=== PATIENT | male | born 1990 | race African-American/Black ===

== ENCOUNTER 2018-01-05 06:25 | Emergency (ER) | payer MEDICAID, OTHER ==
[~2018-01-05] VITALS: Ht 188 cm; Wt 118.0 kg
[~2018-01-05 06:25] MED LIST: KEPP500 PO; LEVE500T19 PO; PHEN100C4 PO; PHEN300C6 PO
[2018-01-05] MEDS ORDERED: LORAZEPAM 2MG/ML CPJ IV STA (08:01)
[2018-01-05] MEDS ORDERED: SODIUM CHLORIDE 0.9% 1,000 ML IV ONE ×2 (08:01→09:44)
[2018-01-05] MEDS ORDERED: LEVETIRACETAM 500MG TABLET PO ONE (08:15)
[2018-01-05 09:11] LABS: BASOPHILS % 0.3 % (0.0-2.0); HEMATOCRIT. 42.5 % (42.0-52.0); HEMOGLOBIN. 14.1 g/dL (14.0-18.0); MEAN CORPUSCULAR HEMOGLOBIN 27.6 pg (28.0-32.0); MEAN CORPUSCULAR VOLUME 83.5 fL (80.0-94.0); MEAN PLATELET VOLUME 7.3 fl (7.4-10.4); MONOCYTES % 7.2 % (2.0-8.0); NEUTROPHILS % 76.5 % (40.0-76.0); PLATELET 311 x1000/uL (130-400); RED BLOOD CELL COUNT 5.09 mill/uL (4.7-6.1); RED CELL DISTRIBUTION WIDTH 14.1 % (11.6-14.6)
[2018-01-05 09:14] LABS: CHLORIDE 107 mEq/L (98-107)
[2018-01-05 09:17] LABS: ETHANOL BLOOD < 10 mg/dL
[2018-01-05 09:22] LABS: CREATINE KINASE 448 IU/L (39-308)
[2018-01-05] MEDS ORDERED: LORAZEPAM 2MG/ML CPJ IV ONE (10:30)
[2018-01-05 11:49] LABS: CLARITY URINE CLEAR (CLEAR); COLOR URINE YELLOW (YELLOW); KETONES URINE 2+ (NEGATIVE); LEUKOCYTE ESTERASE URINE NEGATIVE (NEGATIVE); NITRITE URINE NEGATIVE (NEGATIVE); OCCULT BLOOD URINE 1+ (NEGATIVE); PROTEIN URINE 3+ (NEGATIVE); SPECIFIC GRAVITY URINE 1.033 (1.005-1.030)
[2018-01-05 12:20] LABS: CANNABINOID URINE SCREEN PRESUMTIVE POSITIVE (NEGATIVE); PHENCYCLIDINE URINE SCREEN NEGATIVE (NEGATIVE)
[2018-01-05 12:22] LABS: *BARBITURATES SCREEN URINE NEGATIVE (NEGATIVE); *COCAINE SCREEN URINE NEGATIVE (NEGATIVE)
[2018-01-05 12:23] LABS: METHADONE URINE SCREEN NEGATIVE (NEGATIVE)
[2018-01-05 12:25] LABS: *AMPHETAMINES SCREEN URINE PRESUMTIVE POSITIVE (NEGATIVE); *BENZODIAZEPINES SCREEN URINE NEGATIVE (NEGATIVE)
[2018-01-05 12:31] LABS: OPIATES URINE SCREEN NEGATIVE (NEGATIVE)
[2018-01-05 14:20] VITALS: BP 161/90
== END 2018-01-05 15:41 | disposition home or self-care (01) ==
LOC: ER 06:25
DX: F15.10 Other stimulant abuse, uncomplicated (principal); F23 Brief psychotic disorder; G40.909 Epilepsy, unspecified, not intractable, without status epilepticus; F12.10 Cannabis abuse, uncomplicated; F16.10 Hallucinogen abuse, uncomplicated; J45.909 Unspecified asthma, uncomplicated; Z87.891 Personal history of nicotine dependence; Z88.6 Allergy status to analgesic agent; Z87.828 Personal history of other (healed) physical injury and trauma
CPT/HCPCS: 36415; 80053; 80305; 81003; 82550; 83605; 85025; 96374; 96376; 99285; G0482; J2060; J7030; P9612

== ENCOUNTER 2018-01-09 00:33 | Emergency (ER) | payer MEDICAID ==
[~2018-01-09] VITALS: Ht 185.4 cm; Wt 112.0 kg
[2018-01-09] MEDS ORDERED: LORAZEPAM 0.5MG TABLET PO ONE (01:15)
[2018-01-09 03:00] VITALS: BP 151/82
== END 2018-01-09 03:00 | disposition home or self-care (01) ==
LOC: ER 00:33
DX: F41.9 Anxiety disorder, unspecified (principal); R56.9 Unspecified convulsions; J45.909 Unspecified asthma, uncomplicated; I10 Essential (primary) hypertension; F12.10 Cannabis abuse, uncomplicated; F17.200 Nicotine dependence, unspecified, uncomplicated; Z88.6 Allergy status to analgesic agent
CPT/HCPCS: 99282; Z7610; 99284

== ENCOUNTER 2018-07-25 16:40 | Inpatient (IN) | payer MEDICAID ==
[~2018-07-25] VITALS: Ht 175.3 cm; Wt 79.4 kg
[2018-07-25] MEDS ORDERED: LEVETIRACETAM 500MG PREMIX 100 ML IV ONE (17:00)
[2018-07-25 17:40] LABS: BASOPHILS % 0.4 % (0.0-2.0); EOSINOPHILS % 1.2 % (0.0-5.0); HEMATOCRIT. 42.4 % (42.0-52.0); HEMOGLOBIN. 13.5 g/dL (14.0-18.0); MEAN CORPUSCULAR HEMOGLOBIN 27.2 pg (28.0-32.0); MEAN CORPUSCULAR VOLUME 85.3 fL (80.0-94.0); MEAN PLATELET VOLUME 6.8 fl (7.4-10.4); MONOCYTES % 10.8 % (2.0-8.0); NEUTROPHILS % 61.6 % (40.0-76.0); PLATELET 462 x1000/uL (130-400); RED BLOOD CELL COUNT 4.97 mill/uL (4.7-6.1); RED CELL DISTRIBUTION WIDTH 14.8 % (11.6-14.6)
[2018-07-25 17:46] LABS: CHLORIDE 104 mEq/L (98-107)
[2018-07-25 17:53] LABS: ETHANOL BLOOD < 10 mg/dL
[2018-07-25 17:58] LABS: PARTIAL THROMBOPLASTIN TIME 32.5 sec (23.4-31.0); PROTHROMBIN TIME 10.4 sec (9.1-11.1)
[2018-07-25 18:04] LABS: CARBAMAZEPINE < 0.5 ug/mL (4-12); PHENOBARBITAL < 2.1 ug/mL (15.0-40.0)
[2018-07-25] MEDS ORDERED: ACETAMINOPHEN 650MG/20.3ML UDC GT PRN (23:30)
[2018-07-25] MEDS ORDERED: CLONIDINE 0.1MG TABLET PO PRN (23:30)
[2018-07-25] MEDS ORDERED: ACETAMINOPHEN 650MG SUPP PR PRN (23:30)
[2018-07-25] MEDS ORDERED: IPRATROPIUM/ALBUTEROL 0.5-3(2.5)MG/3ML NEB INH PRN (23:30)
[2018-07-25] MEDS ORDERED: DOCUSATE SODIUM 100MG CAPSULE PO PRN (23:30)
[2018-07-25] MEDS ORDERED: DIPHENHYDRAMINE 50MG/ML VIAL IV PRN (23:30)
[2018-07-25] MEDS ORDERED: HYDROCODONE/ACETAMINOPHEN 5/325MG TABLET PO PRN (23:30)
[2018-07-25] MEDS ORDERED: MAGNESIUM/ALUMINUM HYDROXIDE/SIMETHICONE 30ML UDC PO PRN (23:30)
[2018-07-25] MEDS ORDERED: ACETAMINOPHEN 325MG TABLET PO PRN (23:30)
[2018-07-25] MEDS ORDERED: NA PHOS,M-B/NA PHOS,DI-BA ENEMA 118ML PR PRN (23:30)
[2018-07-25] MEDS ORDERED: LORAZEPAM 2MG/ML CPJ IV PRN (23:30)
[2018-07-26 06:05] LABS: CHLORIDE 105 mEq/L (98-107)
[2018-07-26 06:09] LABS: BASOPHILS % 0.5 % (0.0-2.0); EOSINOPHILS % 0.8 % (0.0-5.0); HEMATOCRIT. 41.5 % (42.0-52.0); HEMOGLOBIN. 13.3 g/dL (14.0-18.0); LYMPHOCYTES % 15.4 % (20.0-50.0); MEAN CORPUSCULAR HEMOGLOBIN 27.2 pg (28.0-32.0); MEAN CORPUSCULAR VOLUME 85.1 fL (80.0-94.0); MEAN PLATELET VOLUME 7.3 fl (7.4-10.4); MONOCYTES % 8.1 % (2.0-8.0); NEUTROPHILS % 75.2 % (40.0-76.0); PLATELET 409 x1000/uL (130-400); RED BLOOD CELL COUNT 4.88 mill/uL (4.7-6.1); RED CELL DISTRIBUTION WIDTH 14.8 % (11.6-14.6)
[2018-07-26 06:13] LABS: LDL CHOLESTEROL 56 mg/dL (5-100)
[2018-07-26 06:15] LABS: HDL CHOLESTEROL 56 mg/dL (40-59)
[2018-07-26 08:53] VITALS: BP 147/103
[2018-07-26 09:00] VITALS: BP 147/90
[2018-07-26] MEDS ORDERED: LEVETIRACETAM 500MG/5ML CUP PO SCH (09:00)
[2018-07-26 12:00] VITALS: BP 138/81
[2018-07-26 16:00] VITALS: BP 123/66
[2018-07-26] MEDS ORDERED: LEVE1000 MT (17:53)
[2018-07-26] MEDS ORDERED: AZIT500T2 MT (17:53)
[2018-07-26 18:00] VITALS: BP 123/66
[2018-07-26] MEDS: AZITHROMYCIN 500 MG TABLET PO SCH (19:59)
[2018-07-26 20:00] VITALS: BP 134/89
[2018-07-26] MEDS: LEVETIRACETAM 500MG TABLET PO SCH (20:52)
[2018-07-27] VITALS: BP 126/52
[2018-07-27 01:59] LABS: *AMPHETAMINES SCREEN URINE PRESUMTIVE POSITIVE (NEGATIVE); *BARBITURATES SCREEN URINE NEGATIVE (NEGATIVE); *BENZODIAZEPINES SCREEN URINE NEGATIVE (NEGATIVE); *COCAINE SCREEN URINE NEGATIVE (NEGATIVE); CANNABINOID URINE SCREEN NEGATIVE (NEGATIVE)
[2018-07-27 02:00] LABS: METHADONE URINE SCREEN NEGATIVE (NEGATIVE); OPIATES URINE SCREEN NEGATIVE (NEGATIVE); PHENCYCLIDINE URINE SCREEN NEGATIVE (NEGATIVE)
[2018-07-27 04:00] VITALS: BP 129/86
[2018-07-27 08:30] VITALS: BP 145/90
[2018-07-27] MEDS: LEVETIRACETAM 500MG TABLET PO SCH (09:36)
[2018-07-27] MEDS: AZITHROMYCIN 500 MG TABLET PO SCH (09:36)
[2018-07-27 12:00] VITALS: BP 142/94
[2018-07-27 15:13] VITALS: BP 142/94
== END 2018-07-27 16:00 | disposition home or self-care (01) | DRG 53 ==
LOC: ER 16:40 → 7WST 19:58 → ENRESERV 07-26 07:45
PROVIDERS: ADMIT Family Medicine; ATTEND Family Medicine
DX: G40.909 Epilepsy, unspecified, not intractable, without status epilepticus (principal); G93.41 Metabolic encephalopathy; E66.9 Obesity, unspecified; J06.9 Acute upper respiratory infection, unspecified; F12.90 Cannabis use, unspecified, uncomplicated; I10 Essential (primary) hypertension; J45.909 Unspecified asthma, uncomplicated; Z82.49 Family history of ischemic heart disease and other diseases of the circulatory system; Z88.8 Allergy status to other drugs, medicaments and biological substances; Z79.899 Other long term (current) drug therapy; Z68.25 Body mass index [BMI] 25.0-25.9, adult
CPT/HCPCS: 36415; 71045; 80061; 80156; 80165; 80184; 80185; 80305; 83880; 84484; 93005; 96365; 96375; 99285; C1893; J1953

== ENCOUNTER 2018-08-04 12:27 | Emergency (ER) | payer MEDICAID ==
[~2018-08-04] VITALS: Ht 177.8 cm; Wt 90.0 kg
[~2018-08-04 12:27] MED LIST changes: +AZIT500T2 MT; -KEPP500 PO; +LEVE1000 MT; -LEVE500T19 PO; -PHEN100C4 PO; -PHEN300C6 PO
[2018-08-04] MEDS ORDERED: SODIUM CHLORIDE 0.9% 1,000 ML IV ONE (12:51)
[2018-08-04] MEDS ORDERED: LEVETIRACETAM 1000MG/100ML 100 ML IV ONE (13:00)
[2018-08-04] MEDS ORDERED: DEXTROSE 50% WATER 50ML SYRINGE IV ONE (13:30)
[2018-08-04] MEDS ORDERED: GLUCAGON,HUMAN RECOMBINANT 1MG/VIAL IM ONE (13:30)
[2018-08-04] MEDS ORDERED: LEVETIRACETAM 500MG TABLET PO ONE (14:00)
[2018-08-04 14:40] VITALS: BP 139/85
== END 2018-08-04 15:24 | disposition left against medical advice (07) ==
LOC: ER 13:20
DX: G92 Toxic encephalopathy (principal); E16.2 Hypoglycemia, unspecified; R56.9 Unspecified convulsions; J45.909 Unspecified asthma, uncomplicated; I10 Essential (primary) hypertension; F12.10 Cannabis abuse, uncomplicated; F14.10 Cocaine abuse, uncomplicated; Z88.6 Allergy status to analgesic agent; Z79.899 Other long term (current) drug therapy
CPT/HCPCS: 82962; 96372; 99283; J1610; J7030

== ENCOUNTER 2018-10-05 11:49 | Emergency (ER) | payer MEDICAID ==
[~2018-10-05] VITALS: Ht 177.8 cm; Wt 85.0 kg
[2018-10-05] MEDS ORDERED: SODIUM CHLORIDE 0.9% 1,000 ML IV ONE (12:10)
[2018-10-05] MEDS ORDERED: LEVETIRACETAM 1000MG/100ML 100 ML IV ONE (12:15)
[2018-10-05 12:57] LABS: BASOPHILS % 0.2 % (0.0-2.0); EOSINOPHILS % 0.4 % (0.0-5.0); HEMATOCRIT. 39.6 % (42.0-52.0); HEMOGLOBIN. 13.2 g/dL (14.0-18.0); LYMPHOCYTES % 14.9 % (20.0-50.0); MEAN CORPUSCULAR HEMOGLOBIN 27.7 pg (28.0-32.0); MEAN PLATELET VOLUME 6.9 fl (7.4-10.4); MONOCYTES % 10.8 % (2.0-8.0); NEUTROPHILS % 73.7 % (40.0-76.0); PLATELET 357 x1000/uL (130-400); RED BLOOD CELL COUNT 4.78 mill/uL (4.7-6.1); RED CELL DISTRIBUTION WIDTH 14.7 % (11.6-14.6)
[2018-10-05 13:04] LABS: CHLORIDE 101 mEq/L (98-107)
[2018-10-05 13:12] LABS: ETHANOL BLOOD < 10 mg/dL
[2018-10-05] MEDS ORDERED: KETOROLAC 30MG/ML VIAL IV ONE (16:00)
[2018-10-05 17:25] VITALS: BP 144/72
== END 2018-10-05 17:33 | disposition home or self-care (01) ==
LOC: MERGE 11:49 → ER 11:49
DX: R56.9 Unspecified convulsions (principal); E86.0 Dehydration; Z91.14 Patient's other noncompliance with medication regimen
CPT/HCPCS: 36415; 70450; 70486; 80048; 80320; 82962; 85025; 96365; 96375; 99284; J1885; J1953; J7030; Z7610; G0480

== ENCOUNTER 2019-03-12 11:12 | Emergency (ER) | payer MEDICAID ==
[~2019-03-12] VITALS: Ht 188 cm; Wt 105.0 kg
[2019-03-12] MEDS ORDERED: LEVETIRACETAM 500MG PREMIX 100 ML IV ONE (12:15)
[2019-03-12 13:09] LABS: BASOPHILS % 0.3 % (0.0-2.0); EOSINOPHILS % 1.1 % (0.0-5.0); HEMOGLOBIN. 13.9 g/dL (14.0-18.0); LYMPHOCYTES % 22.4 % (20.0-50.0); MEAN PLATELET VOLUME 6.9 fl (7.4-10.4); MONOCYTES % 7.4 % (2.0-8.0); NEUTROPHILS % 68.8 % (40.0-76.0); PLATELET 356 x1000/uL (130-400); RED BLOOD CELL COUNT 5.13 mill/uL (4.7-6.1); RED CELL DISTRIBUTION WIDTH 13.7 % (11.6-14.6)
[2019-03-12 14:26] LABS: CHLORIDE 103 mEq/L (98-107)
[2019-03-12] MEDS ORDERED: ACETAMINOPHEN 325MG TABLET PO ONE (15:15)
[2019-03-12 15:20] VITALS: BP 128/72
== END 2019-03-12 16:00 | disposition home or self-care (01) ==
LOC: ER 11:16
DX: R56.9 Unspecified convulsions (principal); R42 Dizziness and giddiness; R53.1 Weakness; F12.10 Cannabis abuse, uncomplicated; F14.10 Cocaine abuse, uncomplicated; I50.9 Heart failure, unspecified; Z88.6 Allergy status to analgesic agent
CPT/HCPCS: 36415; 70450; 80053; 85025; 96365; 99284; J1953